=== PATIENT | female | born 1985 | race Caucasian/White ===

== ENCOUNTER → 2017-05-27 | Outpatient (CLI) | payer OTHER | LOC: FIMAGING 09:43 | PROVIDERS: ATTEND Advanced Practice Midwife | DX: Z34.81 Encounter for supervision of other normal pregnancy, first trimester (principal); Z3A.13 13 weeks gestation of pregnancy ==

== ENCOUNTER → 2017-07-21 | Outpatient (CLI) | payer OTHER | LOC: FIMAGING 09:28 | PROVIDERS: ATTEND Advanced Practice Midwife | DX: Z34.82 Encounter for supervision of other normal pregnancy, second trimester (principal); Z3A.20 20 weeks gestation of pregnancy ==

== ENCOUNTER → 2017-10-07 | Outpatient (CLI) | payer OTHER | LOC: FIMAGING 09:02 | PROVIDERS: ATTEND Registered Nurse | DX: N63.13 Unspecified lump in the right breast, lower outer quadrant (principal) ==

== ENCOUNTER 2017-11-10 16:23 | Inpatient (IN) | payer OTHER ==
[2017-11-10] MEDS ORDERED: LIDOCAINE 1% 300 MG/30 ML SDV ONE (16:39)
[2017-11-10] MEDS ORDERED: OLIVE OIL 118 ML BTL ONE (16:39)
[2017-11-10] MEDS ORDERED: TERBUTALINE SULFATE 1 MG/ML VIAL ONE (16:40)
[2017-11-10] MEDS ORDERED: OXYTOCIN 10 UNIT/ML VIAL ONE (16:40)
[2017-11-10] MEDS ORDERED: MISOPROSTOL 200 MCG TAB ONE (16:40)
[2017-11-10] MEDS ORDERED: AMMONIA AROMATIC 1 EACH AMP IH ONE (16:40)
[2017-11-10] MEDS ORDERED: DOCUSATE SODIUM 100 MG CAP PO PRN (17:04)
[2017-11-10] MEDS ORDERED: HYDROCODONE/APAP 5/325 TAB PO PRN (17:04)
[2017-11-10] MEDS ORDERED: MISOPROSTOL 200 MCG TAB PR PRN (17:04)
[2017-11-10] MEDS ORDERED: LIDOCAINE 1% 300 MG/30 ML SDV SC PRN (17:04)
[2017-11-10] MEDS ORDERED: ACETAMINOPHEN 325 MG TAB PO PRN (17:04)
[2017-11-10] MEDS ORDERED: EPSOM SALT 454 GM TP PRN (17:04)
[2017-11-10] MEDS ORDERED: HYDROCORTISONE 0.5% CREAM TP PRN (17:04)
[2017-11-10] MEDS ORDERED: OXYTOCIN/NORMAL SALINE 1,000 ML IV PRN (17:04)
[2017-11-10] MEDS ORDERED: OLIVE OIL 118 ML BTL MISC PRN (17:04)
[2017-11-10] MEDS ORDERED: TERBUTALINE SULFATE 1 MG/ML VIAL IV PRN (17:04)
[2017-11-10] MEDS ORDERED: SIMETHICONE 80 MG TAB CHEW PO PRN (17:04)
[2017-11-10] MEDS ORDERED: LR 1,000 ML IV PRN (17:04)
--- NOTE | 2017-11-10 17:12 | OBDEL ---
Info Type: Vaginal Presentation at Delivery: Vertex L&D Analgesia/Anesthesia Type: None GBS+: No Indications for Delivery: Spontaneous Labor Vaginal Delivery - Delivery Provider Delivery Physician/CNM: Padmaja Naqvi - Labor and Delivery Onset of Contractions Date: 11/10/17 Onset of Contractions Time: 09:30 Onset of Contractions Type: Spontaneous Rupture of Membranes Date: 11/10/17 Rupture of Membranes Time: 16:42 Rupture of Membranes Type: Spontaneous Amniotic Fluid Color: Clear Dilation Complete Date: 11/10/17 Dilation Complete Time: 16:39 Placenta Delivery Date: 11/10/17 Placenta Delivery Time: 16:51 Total Hours of Labor: 7 Laceration: Other (Specify) (left labial) Vaginal Sponge Count Correct: Yes Vaginal Needle Count Correct: Yes Vaginal Sweep Performed: Yes EBL: 150 Delivery Events: Nuchal Cord (delivered through) Delivery Comment: Transfer from [facility], transitioning upon arrival. Delivered in hands/knees. baby boy Greg. Data RANDI: 12/07/17 Gestational Age: 36 week(s) and 1 day(s) Joiner Delivery Date: 11/10/17 Delivery Time: 16:43 Sex of : Male Score (1 Min): 8 Score (5 Min): 9 ICD10 Worksheet Patient Problems: Problems Problem Status Onset delivery Acute (spontaneous vaginal delivery) Acute - ICD10 Problem Qualifiers (1) delivery
[2017-11-10] MEDS: IBUPROFEN 600 MG TAB PO PRN ×2 (17:15→23:14)
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
[2017-11-11] MEDS: IBUPROFEN 600 MG TAB PO PRN ×4 (05:04→23:54)
--- NOTE | 2017-11-11 09:17 | OBPP ---
Progress Note Assessment/Plan: Assessment: 1) s/p PPD #1 - pt is stable 2) Rh negative Plan: Continue routine pp care RhoGam eval Plan for d/c home in am 11/1211/11/17 09:13 Subjective/ Course: 11/11/17 09:14 Pt seen and examined. Doing well, eating breakfast. Some mild cramping noted. Pt is OOB ambulating, sammi reg diet, voiding and passing flatus. No BM yet. Moderate lochia. Bf well, baby boy is "latching on great." Objective: Patient ABO/Rh O NEGATIVE 11/10/17 17:45 Temp Pulse Resp BP Pulse Ox 36.8 C 88 16 111/64 95 11/11/17 08:55 11/11/17 08:55 11/10/17 22:30 11/11/17 08:55 11/11/17 08:55 Uterine Position/Fundal Height: Umbilicus -2 Uterine Tone: Firm Physical Exam - Physical Exam Respiratory: lungs clear, normal breath sounds Cardiac/Chest: regular rate, rhythm Abdomen: normal bowel sounds, non-tender, soft, flatus (+) Extremities: non-tender, normal inspection Skin: normal color, warm/dry Neuro/Psych: alert, normal mood/affect, oriented x 3
[2017-11-12] MEDS: IBUPROFEN 600 MG TAB PO PRN (06:25)
[2017-11-12 10:35] VITALS: BP 109/66
--- NOTE | 2017-11-12 11:34 | OBPP ---
Progress Note Assessment/Plan: Assessment: 32 y/o PPD #2 s/p @ 36 weeks doing well. Plan: D/c home today or to [facility] depending on baby's status. Rx Ibuprofen. Pt may follow-up @ [facility] or the [facility]. 11/12/17 11:55 Subjective/ Course: 11/11/17 09:14 Pt seen and examined. Doing well, eating breakfast. Some mild cramping noted. Pt is OOB ambulating, sammi reg diet, voiding and passing flatus. No BM yet. Moderate lochia. Bf well, baby boy is "latching on great." 11/12/17 11:53 Pt is doing well today. She has min cramping controlled with Ibuprofen. Min lochia, ambulating, voiding without difficulty. Breast feeding is going well and baby has a good latch. She has min nipple soreness helped with lanolin. They are ready to d/c home. Objective: Patient ABO/Rh O NEGATIVE 11/10/17 17:45 Temp Pulse Resp BP Pulse Ox 36.2 C 88 16 109/66 95 11/12/17 08:00 11/12/17 08:00 11/12/17 08:00 11/12/17 08:00 11/12/17 08:00 Uterine Position/Fundal Height: Umbilicus -3 Uterine Tone: Firm Physical Exam - Physical Exam General Appearance: WD/WN, alert, no apparent distress Neck: non-tender, full range of motion, supple Respiratory: chest non-tender, lungs clear, normal breath sounds Cardiac/Chest: regular rate, rhythm Abdomen: normal bowel sounds Extremities: swelling (no), Cherelle's sign (neg)
== END 2017-11-12 15:10 | disposition home or self-care (01) | DRG 775 ==
LOC: FLD 16:23 → FOB 20:55
PROVIDERS: ADMIT Advanced Practice Midwife; ATTEND Obstetrics & Gynecology
PROC: 10E0XZZ Delivery of Products of Conception, External Approach (ICD-10-PCS; principal; 2017-11-10)
DX: O60.14X0 Preterm labor third trimester with preterm delivery third trimester, not applicable or unspecified (principal); O99.613 Diseases of the digestive system complicating pregnancy, third trimester; K92.9 Disease of digestive system, unspecified; Z3A.36 36 weeks gestation of pregnancy; Z37.0 Single live birth
CPT/HCPCS: J2590; J3105